=== PATIENT | female | born 1945 | race Caucasian/White ===

== ENCOUNTER → 2016-11-19 | Outpatient (CLI) | payer MEDICARE, OTHER ==
[~2016-11-19] MED LIST: ASPIRIN81 M2 PO; ASPIRIN81 MG PO; B-12500 MCG PO; BUSPAR15 M1 PO; BUSPIRONE HCL7.5 MG PO; CALCIUM + D 6001 TA1 PO; COLACE PO; DESYREL50 MG PO; DILANTIN PO; FLEXERIL10 MG PO; IBUPROFEN800 MG PO; LISINOPRIL20 MG PO; MAGNESIUM250 M1 PO; MULTI VITAMIN1 EACH PO; NAPROXEN PO; OXYCODONE HCL5 M1 PO; PHENOBARBITAL100 MG PO; PHENOBARBITAL97.2 MG PO; TAGAMET300 MG PO; VICODIN PO; VITAMIN B12-FO1 EACH PO
--- NOTE | ~2016-11-19 | CT57 ---
[facility] A Service of [facility] RADIOLOGY TEXT RESULTS PATIENT: DARCIE SALAZAR LOCATION: [facility] : 41 UNIT #: [id number] AGE: [address]: Bentley Gallardo MD SEX: F ORDER DR: [id number] [id number] [facility]. [place], [place] [address] [id number] O MR#: [id number] Acc #: [id number] NAME: DARCIE SALAZAR. : 1945 SEX: F STUDY DATE/TIME: 11/19/2016 12:53 UNIT: [facility] ROOM: STUDY DESCRIPTION: CT Chest Wo Cont Attending Physician: Bentley Gallardo M.D. Referring Physician: Bentley Gallardo M.D. Ordering Physician: Bentley Gallardo M.D. Primary Care Physician: Tari Mckay M.D. MEDICAL IMAGING REPORT This report is preliminary unless electronic signature is present EXAM CT chest INDICATIONS Lung cancer. Restaging. Observation for metastatic disease. TECHNIQUE CT of the thorax without contrast. Coronal and sagittal reconstructions were obtained. The CT exam was performed with one or more of the following radiation dose reduction techniques: automatic exposure control, adjustment of mA and/or kV according to patient size, and iterative reconstruction. COMPARISON CT thorax dated 04/10/2016. FINDINGS Patient is status post wedge resection in the posterior right lower lobe and wedge resection in the posterior right upper lobe. The previous described pulmonary nodules in this area have been resected. No new pulmonary nodules are identified. There has been interval development of a small right pleural effusion. No new pulmonary opacities in the left lung. There is background emphysema. Central airways are patent. No pericardial effusion. No enlarged mediastinal or hilar lymph nodes. The thoracic aorta is normal in caliber. Extensive coronary calcifications are noted. Limited images of the upper abdomen were obtained. Both adrenal glands [facility] A Service of [facility] RADIOLOGY TEXT RESULTS PATIENT: DARCIE SALAZAR LOCATION: [facility] : 41 UNIT #: [id number] AGE: [address]: Bentley Gallardo MD SEX: F ORDER DR: are normal in appearance. There is a benign cyst in the mid left kidney. No suspicious osseous abnormalities. IMPRESSION 1. Interval surgical resection of 2 pulmonary nodules, 1 in the right lower lobe and 1 in the right upper lobe. 2. No new or suspicious pulmonary findings. 3. Development of a small right pleural effusion. Dictated by... Vahid Watkins M.D. THIS IS AN ELECTRONICALLY VERIFIED REPORT Vahid Watkins M.D. at 11/20/2016 9:53 AM JOHN/jenna TD: 11/19/2016 14:19 JOB #: [id number] MEDICAL IMAGING REPORT Page 1 of 1 COPY
== END | disposition home or self-care (01) ==
LOC: CCAT 12:22
DX: C34.90 Malignant neoplasm of unspecified part of unspecified bronchus or lung (principal); R91.8 Other nonspecific abnormal finding of lung field; J90 Pleural effusion, not elsewhere classified
CPT/HCPCS: 71250

== ENCOUNTER → 2017-04-13 | Outpatient (CLI) | payer MEDICARE, OTHER ==
--- NOTE | ~2017-04-13 | BD1 ---
[facility] A Service of [facility] RADIOLOGY TEXT RESULTS PATIENT: DARCIE SALAZAR LOCATION: [facility] : 41 UNIT #: [id number] AGE: [address]: Nadiya Buenrostro MD SEX: F ORDER DR: [id number] [address] [address] [id number] O MR#: [id number] Acc #: [id number] NAME: DARCIE SALAZAR : 1945 SEX: F STUDY DATE/TIME: 04/13/2017 10:52 UNIT: [facility] ROOM: STUDY DESCRIPTION: BD Dexa Bone Dens 1+ Site Attending Physician: Nadiya Buenrostro M.D. Referring Physician: Nadiya Buenrostro M.D. Ordering Physician: Nadiya Buenrostro M.D. Primary Care Physician: Nadiya Buenrostro M.D. MEDICAL IMAGING REPORT This report is preliminary unless electronic signature is present EXAM DXA scan. Date: 04/03/2017 HISTORY 71-year postmenopausal female for osteoporosis screening. COMPARISON DXA scan 11/17/2014. FINDINGS L1-L4 total bone mineral density is 0.15 g/cm2 with T-score -2.1 and Z-score 0.2, corresponding to range of osteopenia. This represents a 0.9% increase in bone mineral density since the 2014 examination which is not statistically significant. The left hip total bone mineral density is 0.619 g/cm2 with T-score -2.7 and Z-score -1.0, corresponding to the range of osteoporosis. This represents a 1.9% decrease in bone mineral density since 11/17/2014 which is not statistically significant. IMPRESSION 1. Bone mineral density in the left hip corresponds to the range of osteoporosis. This stratifies the patient at increased risk for fracture. Appropriate medical therapy is advised. 2. Lumbar spine bone mineral density corresponds to the range of osteopenia. 3. There has been no statistically change in bone mineral density within the lumbar spine or within the left hip in comparison to the DXA scan from 11/17/2014. Dictated by... [facility] A Service of [facility] RADIOLOGY TEXT RESULTS PATIENT: DARCIE SALAZAR [facility] [id number] : 41 UNIT #: [id number] AGE: [address]: Nadiya Buenrostro MD SEX: F ORDER DR: Vera Byrne M.D. THIS IS AN ELECTRONICALLY VERIFIED REPORT Vera Byrne M.D. at 04/14/2017 5:04 PM REJI/lisa TD: 04/14/2017 10:56 JOB #: [id number] MEDICAL IMAGING REPORT Page 1 of 1 COPY
== END | disposition home or self-care (01) ==
LOC: CWCC 10:28
DX: M81.0 Age-related osteoporosis without current pathological fracture (principal)
CPT/HCPCS: 77080